=== PATIENT | male | born 2000 | race Caucasian/White ===

== ENCOUNTER 2023-07-25 11:11 | Emergency (ER) | payer SELFPAY ==
[2023-07-25 11:36] VITALS: BP 121/58; PULSE 82; RESP 18; TEMP 36.7; O2SAT 99; BMI 18.1
--- NOTE | 2023-07-25 12:42 | ED.SKABFB ---
HPI - Skin/Abscess/Foreign Bdy <Rober Chávez PA-C - Last Filed: 07/25/23 19:25> General Chief complaint: Skin/Abscess/Foreign Body Stated complaint: epoxy poisoning Time Seen by Provider: 07/25/23 11:58 Source: patient Mode of arrival: Ambulatory Limitations: no limitations History of Present Illness HPI narrative: 22-year-old male with no reported past medical history presents to the ED with 2 days of diffuse rash. 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 Patient states that he works with epoxy all the time, yesterday he was exposed to a proxy on his skin on both forearms. Patient states that he while he was wearing gloves, he did have a short sleeved shirt. Patient states that the rash started yesterday evening on the forearms, however it has spread to above his elbows, patient has some rash around the neck and in his lower legs. Patient states that the rash is mildly itchy. No mucosal involvement. Patient also endorses a scratchy throat. Patient denies fever, chills, shortness of breath, chest pain, abdominal pain, nausea, vomiting. Related Data Previous Rx's Medication Instructions Recorded methylprednisolone 4 mg tablets in See Rx Instructions PO .COMPLEX 07/25/23 a dose pack (Medrol (Rickey)) #21 ea triamcinolone acetonide 0.025 % 1 applic topical TID #80 grams 07/25/23 topical ointment Allergies Allergy/AdvReac Type Severity Reaction Status Date / Time No Known Drug Allergies Allergy Verified 07/25/23 11:36 Review of Systems <Rober Chávez PA-C - Last Filed: 07/25/23 19:25> Constitutional Constitutional: Denies chills, Denies fatigue, Denies fever(s), Denies frequent falls, Denies lethargy and Denies weakness Eyes Eyes: Denies change in vision, Denies eye discharge, Denies irritation and Denies loss of vision ENT Ears, Nose, Mouth, and Throat: Denies change in voice, Denies dizziness, Denies neck pain, Denies sore throat and Denies throat swelling Cardiovascular Cardiovascular: Denies chest pain, Denies irregular heart rhythm, Denies lightheadedness, Denies palpitations, Denies dyspnea, Denies dyspnea on exertion and Denies orthopnea Respiratory Respiratory: Denies cough, Denies dyspnea, Denies dyspnea on exertion and Denies wheezing Gastrointestinal Gastrointestinal: Denies abdominal pain, Denies change in bowel habits, Denies diarrhea, Denies nausea and Denies vomiting Musculoskeletal Musculoskeletal: Denies neck pain and Denies numbness Integumentary/Breasts Skin/Breast: Denies pruritus, Denies erythema, Reports rash and Denies wounds Neurologic Neurologic: Denies behavioral changes, Denies confusion, Denies dizziness, Denies frequent falls, Denies loss of vision, Denies numbness and Denies weakness Psychiatric Psychiatric: Denies anxiety, Denies behavioral changes, Denies confusion, Denies depression, Denies homicidal ideation and Denies suicidal ideation Endocrine Endocrine: Denies fatigue, Denies flushing and Denies palpitations Hematologic/Lymphatic Hematologic/Lymphatic: Denies easy bruising Allergic/Immunologic Allergic/Immunologic: Denies urticaria, Denies throat swelling and Denies wheezing Patient History <Rober Chávez PA-C - Last Filed: 07/25/23 19:25> Social History Smoking Status: Current every day smoker Smoking Status: Current every day smoker tobacco type: vaping alcohol intake frequency: 3 or more drinks per day Substance Use Type: marijuana Exam <Rober Chávez PA-C - Last Filed: 07/25/23 19:25> Narrative Exam Narrative: Const General:?cooperative, healthy appearing and comfortable [facility] Head:?normal to inspection Ears:?hearing grossly normal bilaterally Nose:?external nose normal Face and sinus:?normal facial exam and sinuses nontender Mouth:?oral mucosae normal Throat:?posterior oropharynx normal; some tonsillar exudates noted but airway is patent and no swelling of tonsils Eyes General:?appearance normal, both eyes and all related structures Neck Neck:?normal visual inspection and no lymphadenopathy noted Resp Effort & Inspection:?normal respiratory effort Auscultation:?clear to auscultation bilaterally Cardio Rate:?regular rate Rhythm:?regular rhythm Integumentary There is a discrete, raised, erythematous rash on bilateral arms up to just above the elbow. There is also the rash on the neck and lower legs close to the ankles. No signs of bacterial infection. No mucosal involvement. Neuro General:?patient alert, patient awake and patient oriented x3 Initial Vital Signs Initial Vital Signs: Vital Signs Temperature 98.1 F 04/09/24 11:36 Pulse Rate 82 07/25/23 11:36 Respiratory Rate 18 07/25/23 11:36 Blood Pressure 121/58 L 07/25/23 11:36 Pulse Oximetry 99 07/25/23 11:36 Oxygen Delivery Method Room Air 07/25/23 11:36 <Lb Garcia MD - Last Filed: 08/01/23 09:28> Initial Vital Signs Initial Vital Signs: Vital Signs Temperature 98.1 F 07/25/23 11:36 Pulse Rate 82 07/25/23 11:36 Respiratory Rate 18 07/25/23 11:36 Blood Pressure 121/58 L 07/25/23 11:36 Pulse Oximetry 99 07/25/23 11:36 Oxygen Delivery Method Room Air 07/25/23 11:36 Course <Rober Chávez PA-C - Last Filed: 07/25/23 19:25> Orders Ordered: Discontinued Medications Diphenhydramine HCl (Diphenhydramine 25 Mg Tablet) 25 mg PO NOW ONE Stop: 07/25/23 13:31 Last Admin: 07/25/23 13:58 Dose: 25 mg Documented By: SUSI Prednisone (Prednisone 20 Mg Tablet) 20 mg PO NOW ONE Stop: 07/25/23 13:31 Last Admin: 07/25/23 13:58 Dose: 20 mg Documented By: SUSI Vital Signs Vital signs: Vital Signs - 8 hr 07/25/23 11:36 07/25/23 14:39 Temperature 98.1 F Pulse Rate 82 64 Respiratory Rate 18 16 Blood Pressure 121/58 L 111/75 Pulse Oximetry 99 100 Oxygen Delivery Method Room Air Room Air <Lb Garcia MD - Last Filed: 08/01/23 09:28> Orders Ordered: Discontinued Medications Diphenhydramine HCl (Diphenhydramine 25 Mg Tablet) 25 mg PO NOW ONE Stop: 07/25/23 13:31 Last Admin: 07/25/23 13:58 Dose: 25 mg Documented By: SUSI Prednisone (Prednisone 20 Mg Tablet) 20 mg PO NOW ONE Stop: 07/25/23 13:31 Last Admin: 07/25/23 13:58 Dose: 20 mg Documented By: SUSI Vital Signs Vital signs: Vital Signs - 8 hr 07/25/23 11:36 07/25/23 14:39 Temperature 98.1 F Pulse Rate 82 64 Respiratory Rate 18 16 Blood Pressure 121/58 L 111/75 Pulse Oximetry 99 100 Oxygen Delivery Method Room Air Room Air MDM - Skin/Abscess/Foreign Bdy <Rober Chávez PA-C - Last Filed: 07/25/23 19:25> Lab Data Labs: Lab Results 07/25/23 Range/Units 13:05 Group A Strep (PCR) Negative (Negative) MDM Narrative Medical decision making narrative: 22-year-old male with no reported past medical history presents to the ED with 2 days of diffuse rash. Patient's presentation is most consistent with a contact dermatitis from exposure to a boxy. Poison control was contacted, they recommend topical corticosteroids and do not suspect involvement beyond the skin. Strep test was negative on patient. Patient given a dose of prednisone and Benadryl in the ED. Discussed findings with patient, recommend avoiding exposure to hypoxia. Prescribed prednisone, topical steroid ointment. Recommend follow-up with PCP. ED return precautions were discussed with patient. Patient verbalized understanding. Medical records reviewed: Yes <Lb Garcia MD - Last Filed: 08/01/23 09:28> Lab Data Labs: Lab Results 07/25/23 Range/Units 13:05 Group A Strep (PCR) Negative (Negative) Discharge Plan Departure Patient Disposition: Home Clinical Impression: Contact dermatitis Instructions: DI for Contact Dermatitis Activity Restrictions/Additional Instructions: You were evaluated in the ED today for a rash from hypoxia exposure. You are being prescribed a steroid ointment to apply topically to the rash for relief. Please avoid any further hypoxia exposure. Return to the ED if you have worsening symptoms, chest pain, shortness of breath, trouble swallowing. Prescriptions: New methylprednisolone [Medrol (Rickey)] 4 mg tablets,dose pack See Rx Instructions .ROUTE .COMPLEX Qty: 21 0RF Rx Instructions: for 6 days triamcinolone acetonide 0.025 % ointment 1 applic topical TID Qty: 80 0RF Stand Alone Forms: Patient Portal/API ED Sign-out <Lb Garcia MD - Last Filed: 08/01/23 09:28> Cosign ED Attending Cosignature Attestation: I was immediately available in the department for consultation. ?This documentation has been reviewed and I agree with assessment and plan. Supervised by Lb Garcia MD
--- NOTE | 2023-07-25 13:30 | PC.NURSE ---
called Poison control. pt reports the he has EPO poisoning. reports he first got it on his left forearm at work. states he went to bed and woke up with red hands and red forearms with a extensive rash. rash is also over his feet but minimal. no weeping or drainage noted. stated he is itchy. waiting for patient to find out the product info.
[2023-07-25 13:54] LABS: Strep Grp A by PCR Rapid Negative (Negative)
[2023-07-25] MEDS: predniSONE 20 MG TABLET PO (13:58)
[2023-07-25] MEDS: diphenhydrAMINE 25 MG TABLET PO (13:58)
[2023-07-25 14:39] VITALS: BP 111/75; PULSE 64; RESP 16; O2SAT 100
--- NOTE | 2023-07-25 14:43 | PC.NURSE ---
called poison control back. spoke with Peyton, pt reports that the the lacquer thinners was Cornel Stearns [id number] [phone] and the Epo was Cornel Stearns Epoxy, unsure of grade. Updated PA with the recommendations from Poison Control.
--- NOTE | 2023-07-25 18:28 | PC.NURSE ---
updated poison control. call is complete at [id number]
== END 2023-07-25 14:59 | disposition home or self-care (01) ==
PROVIDERS: Emergency Provider Student in an Organized Health Care Education/Training Program
DX: L25.9 Unspecified contact dermatitis, unspecified cause (principal)
CPT/HCPCS: 87651; 99283